=== PATIENT | male | born 1970 | race Caucasian/White ===

== ENCOUNTER 2022-10-06 17:38 | Emergency (ER) | payer OTHER ==
[~2022-10-06] VITALS: Ht 185.4 cm; Wt 125.5 kg
[2022-10-06 17:51] LABS: BASOPHILS # (AUTO) 0.1 X10'3 (0-0.2); BASOPHILS % (AUTO) 0.6 % (0-1); EOSINOPHILS # (AUTO) 0.2 X10'3 (0-0.9); EOSINOPHILS % (AUTO) 2.4 % (0-6); HEMATOCRIT 44.6 % (42.0-52.0); LYMPHOCYTES # (AUTO) 2.4 X10'3 (1.1-4.8); LYMPHOCYTES % (AUTO) 23.9 % (21-51); MEAN CORPUSCULAR HEMOGLOBIN 29.9 PG (27.0-31.0); MEAN CORPUSCULAR HGB CONC 33.6 g/dL (33.0-36.5); MEAN CORPUSCULAR VOLUME 89.2 FL (78-98); MEAN PLATELET VOLUME 7.5 FL (7.4-10.4); MONOCYTES # (AUTO) 0.9 X10'3 (0-0.9); MONOCYTES % (AUTO) 8.6 % (2-12); NEUTROPHILS # (AUTO) 6.6 X10'3 (1.8-7.7); NEUTROPHILS % (AUTO) 64.5 % (42-75); PLATELET COUNT 331 X10'3 (140-440); RED CELL DISTRIBUTION WIDTH 13.3 % (11.5-14.5); WHITE BLOOD COUNT 10.2 X10'3 (4.5-11.0)
[2022-10-06 18:00] VITALS: TEMP 98.2
[2022-10-06 18:03] LABS: ALANINE AMINOTRANSFERASE 32 U/L (12-78); ALBUMIN 3.8 G/DL (3.4-5.0); ALKALINE PHOSPHATASE 50 IU/L (46-116); ANION GAP 9 (8-16); ASPARTATE AMINO TRANSFERASE 23 U/L (10-37); BILIRUBIN,TOTAL 0.4 MG/DL (0.1-1.0); BLOOD UREA NITROGEN 23 MG/DL (7-18); BUN/CREATININE RATIO 21.1 (10.0-20.0); CALCIUM 9.7 MG/DL (8.5-10.1); CHLORIDE 104 MMOL/L (99-107); CREATININE 1.09 MG/DL (0.60-1.10); GLUCOSE 143 MG/DL (70-104); SODIUM 140 MMOL/L (135-145); TOTAL PROTEIN 7.5 G/DL (6.4-8.2); eGFR 71 ML/MIN
[2022-10-06 18:11] LABS: PRO BRAIN NATRIURETIC PEPTIDE < 30 PG/ML (0-125)
--- NOTE | 2022-10-06 18:16 | NUR ---
pt. seen and evaluated by Dr. Bowles while in Triage. States pt. 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
--- NOTE | 2022-10-06 19:40 | NUR ---
PT PRESENTS TO THE ER FOR THOUGHTS OF HAVING A STROKE. PT REPORTS FACIAL NUMBNESS ON RIGHT SIDE OF FACE. PT REPORTS NOT BEING ABLE TO CLOSE RIGHT EYE. PT REPORTS SYMPTOMS STARTED YESTERDAY MORNING.
[2022-10-06 21:30] VITALS: BP 152/80; PULSE 56; RESP 16; O2SAT 96
[2022-10-06] MEDS ORDERED: VALA10002 PO (22:46)
[2022-10-06] MEDS ORDERED: PRED1TAB PO (22:46)
== END 2022-10-06 23:02 | disposition home or self-care (01) ==
LOC: ER 17:39
DX: G51.0 Bell's palsy (principal); Z79.2 Long term (current) use of antibiotics; Z79.899 Other long term (current) drug therapy
CPT/HCPCS: 36415; 80053; 83880; 84484; 85025; 93005; 99285

== ENCOUNTER 2025-02-06 09:34 | Emergency (ER) | payer OTHER ==
[~2025-02-06] VITALS: Ht 185.4 cm; Wt 132.1 kg
[~2025-02-06 09:34] MED LIST: PRED1TAB PO; VALA10002 PO
[2025-02-06 09:40] VITALS: BP 141/86; PULSE 100; RESP 18; O2SAT 96
--- NOTE | 2025-02-06 12:13 | RADIOLOGY REPORT ---
CLINICAL INDICATION: FOOT PAIN TECHNIQUE: DI FOOT, COMPLETE (3VW MIN) COMPARISON: None FINDINGS/IMPRESSION: : There is no evidence of acute fracture or dislocation. Dorsal and plantar calcaneal enthesophyte. Soft tissue swelling of the dorsum of the foot. Mild 1st MTP joint osteoarthritis.
[2025-02-06] MEDS ORDERED: IBUP-864 PO (12:21)
--- NOTE | 2025-02-06 12:22 | Physician Documentation ---
History of Present Illness ~ Chief Complaint: Foot pain Stated Complaint: FOOT PAIN Time Seen by MD: 12:02 Primary Medical Doctor: NONE Source: patient Mode of Arrival: POV Exam Limitations: no limitations HPI 54-year-old male workman's comp injury working at [employer] fell into a dark section hit the top of his left foot on a metal grate from the doc. Pain to left foot. Tetanus witin 5 years: No Medication Reconciliation Allergies: Coded Allergies: No Known Allergies (Unverified , 02/06/25) Scheduled Prednisone* (Prednisone*), 50 TAB PO DAILY Valacyclovir HCl (Valtrex), 1 TAB PO Q8H Past Medical History Past Medical History: No Pertinent History Past Surgical History: no surgical history Alcohol Use: None Drug Use: none Lives with: Family Lives In: Home Occupation: employed Review of Systems All Other Systems at this time: Reviewed and Negative Musculoskeletal: Reports: see HPI Physical Exam Vital Signs: RN Vital Signs have been reviewed: Yes, Temperature: 97.7, Source: Temporal, Heart Rate: 100, Respiratory Rate: 18, BP: 141/86, Pulse Oximetry: 96, Weight: 132.100 Oxygen Flow Rate: 0 Physical Exam General: Alert, no apparent distress. HEENT: moist mucous membranes. Neck: Full range of motion. Respiratory: No respiratory distress speaking in full sentences Chest: No accessory muscle use. Cardiovascular: Appears well perfused Extremity: No obvious deformity to the left foot dorsum with soft tissue swelling no erythema or ecchymosis. Plus two pedal pulse Neurologic: Oriented x4. Psychiatric: Normal mood and affect. Skin: Normal color, warm and dry. No edema, no ecchymosis. Progress Results/Orders Results/Orders Vital Signs 02/06/25 09:40 Temp 97.7 Pulse 100 Resp 18 B/P (MAP) 141/86 Pulse Ox 96 O2 Flow Rate 0 EKG/XRAY/CT/US/VASC/MRI Bone/Soft Tissue X-Ray (Ext.) : Additional Comment CLINICAL INDICATION: FOOT PAIN TECHNIQUE: DI FOOT, COMPLETE (3VW MIN) COMPARISON: None FINDINGS/IMPRESSION: : There is no evidence of acute fracture or dislocation. Dorsal and plantar calcaneal enthesophyte. Soft tissue swelling of the dorsum of the foot. Mild 1st MTP joint osteoarthritis. Medical Decision Making Additional information obtaine: N/A Findings Workman's comp injury with a fall injury left foot pain. X-ray was negative for any fractures. Does show osteophytes and arthritic changes. Patient to follow up with [facility] provider General Diff Dx:Considerations: Unlikely: Abrasion, Contusion, Fracture, Hematoma, Laceration, Malunion, Neurovascular injury, Open fracture, Sprain, Ulcer, Other Knee Diff Dx:Considerations: Unlikely: Abrasion, Arthritis, Contusion, DJD, Fracture-femur, Fracture-fibula, Fracture-patella, Fracture-tibia, Gout, Hematoma, Laceration, Meniscus injury, Neurovascular injury, Open fracture, Rheumatoid arthritis, Septic, Sprain, Sprain-MCL, Sprain-LCL, Sprain-ACL, Sprain-PCL, Other Ankle Diff Dx:Considerations: Unlikely: Abrasion, Arthritis, Contusion, DJD, Fracture-metatarsal, Fracture-fibula, Fracture-tarsal, Fracture-tibia, Gout, Hematoma, Laceration, Malunion, Neurovascular injury, Nonunion, Open fracture, Osteomyelitis, Rheumatoid arthritis, Sprain, Septic, Ulcer, Other Foot Diff Dx:Considerations: Include: Abrasion, Contusion, Dislocation, Fracture-metatarsal, Fracture-phalynx, Fracture-tarsal, Gout, Other Toe Diff Dx:Considerations: Unlikely: Abrasion, Cellulitis, Contusion, Dislocation, Felon, Fracture, Hematoma, Laceration, Neurovascular injury, Open fracture, Paronychia, Subungual hematoma, Other Departure Time of Disposition: 12:20 Disposition: 01 HOME / SELF CARE / HOMELESS Impression: Primary Impression: Foot pain Additional Impression: Sprain of foot Condition: Stable Discharge Instructions: Sprains Additional Instructions: CLINICAL INDICATION: FOOT PAIN TECHNIQUE: DI FOOT, COMPLETE (3VW MIN) COMPARISON: None FINDINGS/IMPRESSION: : There is no evidence of acute fracture or dislocation. Dorsal and plantar calcaneal enthesophyte. Soft tissue swelling of the dorsum of the foot. Mild 1st MTP joint osteoarthritis. Sutures of the foot only showing soft tissue swelling and arthritis. Walking boot for comfort ibuprofen as needed for [id number] pain follow up with employer and [employer] provider Referrals: NO PRIMARY CARE PROVIDER (PCP) Prescriptions Ibuprofen (Ibu) 800 Mg Tablet 1 TAB PO Q12H for 30 Days, #60 TAB 0 Refills Prov: HUSSAIN CORNEJO NP 02/06/25 Education Educated: Patient Educated regarding: diagnosis, treatment, need for follow up Signature Scribe Signature: no Scribe Attestation: The note accurately reflects work and decisions made by me.Hussain SPENCE 02/06/25 12:21 HUSSAIN CORNEJO NP Feb 06, 2025 12:22
[2025-02-06 12:42] VITALS: TEMP 97.7
== END 2025-02-06 12:44 | disposition home or self-care (01) ==
LOC: ER 09:35
DX: S93.692A Other sprain of left foot, initial encounter (principal); Z79.899 Other long term (current) drug therapy; W22.8XXA Striking against or struck by other objects, initial encounter; Y93.89 Activity, other specified; Y92.89 Other specified places as the place of occurrence of the external cause; Y99.8 Other external cause status
CPT/HCPCS: 73630; 99283; L3260